=== PATIENT | male | born 1955 | race Two or more races ===

== ENCOUNTER 2017-04-20 15:45 | Emergency (ER) | payer MEDICAID ==
[2017-04-20 15:49] VITALS: BP 150/83; PULSE 60; RESP 16; TEMP 98.1; O2SAT 95
--- NOTE | 2017-04-20 16:36 | EDPHY ---
H & P Time Seen by Provider: 04/20/17 16:30 HPI/ROS: CHIEF COMPLAINT: Right thumb pain x6 weeks HISTORY OF PRESENT ILLNESS: 61-year-old male states that 6 weeks ago he sustained a mechanical fall and fell onto his right hand sustaining hyperabduction injury to his right thumb. He has been wearing a modified right Velcro thumb spica splint but notes continued pain with range of motion. No weakness. No discoloration. Intact skin. No wrist pain. No other hand pain. No elbow or head injury. PRIMARY CARE PROVIDER: the [facility] REVIEW OF SYSTEMS: A ten point review of systems was performed and is negative with the exception of the items mentioned in the HPI PHYSICAL EXAM (Prior to examination, patient consented to physical exam, hands were washed and my usual and customary physical exam procedures followed) 1) GENERAL: Well-developed, well-nourished, alert and oriented. Appears to be in no acute distress. 2) HEAD: Normocephalic 3) HEENT: Pupils equal, round, reactive to light bilaterally. 4) LUNGS: Breathing comfortably. 5) MUSCULOSKELETAL: Tender to palpation right thumb proximal phalanx. No visible or palpable abnormality. No crepitus. Soft compartments. Normal coloration. 6) SKIN: intact skin. No signs of infection. Negative kanavel. 7) VASCULAR: pulses and cap refill present are brisk 8) NEUROLOGIC: Radial, ulnar, median nerve function intact with no deficits appreciated on exam DIFFERENTIAL DIAGNOSIS: in no particular order including but not limited to fracture, sprain, ulnar collateral ligament injury, septic arthritis, compartment syndrome Procedure: Splint A Velcro thumb spica splint was applied by ER mechanical sound technician. After application of the splint I returned and re-examined the patient. The splint was adequately immobilizing the joint and distal to the splint the patient's circulation and sensation were intact. Patient shows no signs of compartment syndrome. Was given orthopedic precautions. Smoking Status: Former smoker Constitutional: Initial Vital Signs Temperature (C) 36.7 C 04/20/17 15:47 Heart Rate 60 04/20/17 15:47 Respiratory Rate 16 04/20/17 15:47 Blood Pressure 150/83 H 04/20/17 15:47 O2 Sat (%) 95 04/20/17 15:47 Allergies/Adverse Reactions: No Known Allergies Allergy (Verified 04/20/17 15:46) Home Medications: Medication Instructions Recorded NK [No Known Home Meds] 04/20/17 MDM/Departure - MDM Imaging Results: Imaging Impressions Hand X-Ray 04/20/17 15:50 Impression: Normal first digit. Images reviewed by myself ED Course/Re-evaluation: Doubt septic arthritis. We discussed possibility of occult fracture, discussed possible occult scaphoid fracture, discussed possible ulnar collateral ligament injury . Doubt compartment syndrome. Doubt septic arthritis. Doubt infectious etiology. At this time I do not think that emergent hand consultation or MRI is indicated. He has been placed in a Velcro thumb spica and given Hand surgery on-call follow-up information stressed the importance of follow-up. He feels comfortable with this plan.Care of patient under supervision of secondary supervising physician Dr Stone . - Depart Disposition: Home, Routine, Self-Care Clinical Impression: Gamekeeper's thumb of right hand Qualifiers: Encounter type: initial encounter Qualified Code(s): S53.31XA - Traumatic rupture of right ulnar collateral ligament, initial encounter Condition: Good Instructions: Skier's Thumb (ED) Additional Instructions: Return to the ER immediately if you experience discoloration, have worsening pain, numbness, tingling, or any other symptoms that concern you. If you received x-rays in the emergency department today, be advised, that ligamentous , tendon, muscular, and other non-bony injury cannot be fully ruled out. Try to keep your affected extremity elevated above the level of your chest, and keep cold packs on the affected area, for the next 48 hours. Referrals: Corey Scruggs MD [Medical Doctor] - 2-3 days, call for appt.
== END 2017-04-20 16:45 | disposition home or self-care (01) ==
DX: S53.31XA Traumatic rupture of right ulnar collateral ligament, initial encounter (principal); Z87.891 Personal history of nicotine dependence; W18.39XA Other fall on same level, initial encounter
CPT/HCPCS: L3807

== ENCOUNTER 2018-03-07 11:55 | Emergency (ER) | payer MEDICAID ==
--- NOTE | 2018-03-07 13:10 | EDPHY ---
H & P Stated Complaint: suprapubic and l lower abd pain Time Seen by Provider: 03/07/18 12:50 HPI/ROS: CHIEF COMPLAINT: Left lower quadrant pain HISTORY OF PRESENT ILLNESS: 62-year-old male with history of diverticulitis presents with left lower quadrant pain. Onset of left lower quadrant pain 3 days ago. The pain is mild and increases with palpation. Associated with pain after urination. Low-grade fever last night. No vomiting or diarrhea. Similar to prior episodes of diverticulitis. REVIEW OF SYSTEMS: complete 10 point ROS reviewed and is negative except for the noted elements in the HPI - Personal History Current Tetanus Diphtheria and Acellular Pertussis (TDAP): Yes Tetanus Vaccine Date: 2013 - Medical/Surgical History Hx Asthma: No Hx Chronic Respiratory Disease: No Hx Diabetes: No Hx Cardiac Disease: No Hx Renal Disease: No Hx Cirrhosis: No Hx Alcoholism: No Hx HIV/AIDS: No Hx Splenectomy or Spleen Trauma: No Other PMH: arthritis - Social History Smoking Status: Former smoker - Physical Exam Exam: General Appearance: Alert, pleasant Eyes: Pupils equal and round, no conjunctival pallor or injection ENT, Mouth: Mucous membranes moist Neck: Normal inspection Respiratory: Lungs are clear to auscultation Cardiovascular: Regular rate and rhythm Gastrointestinal: Abdomen is soft, left lower quadrant tenderness Neurological: A&O, nonfocal, normal gait Skin: Warm and dry, no rash Extremities: Nontender, no pedal edema Psychiatric: Mood and affect normal Constitutional: Initial Vital Signs Temperature (C) 36.6 C 03/07/18 12:02 Heart Rate 75 03/07/18 12:02 Respiratory Rate 18 03/07/18 12:02 Blood Pressure 161/97 H 03/07/18 12:02 O2 Sat (%) 97 03/07/18 12:02 O2 Delivery Mode Room Air Allergies/Adverse Reactions: No Known Allergies Allergy (Verified 03/07/18 12:02) Home Medications: Medication Instructions Recorded Ciprofloxacin [Cipro] 500 mg PO BID #20 tab 03/07/18 metroNIDAZOLE [Flagyl 500 mg (*)] 500 mg PO BID #20 tab 03/07/18 Medical Decision Making ED Course/Re-evaluation: This patient presents with left lower quadrant tenderness and low-grade fever last evening. Urinalysis reveals hematuria, without pyuria. Clinical presentation consistent with acute diverticulitis. Doubt renal colic, given the mild nature of the pain. Discussed with patient, will treat with Cipro and Flagyl. If symptoms worsen, will return to the emergency department for re- evaluation, consideration of CT scan. Differential Diagnosis: Differential diagnosis includes though it is not limited to appendicitis, cholecystitis, diverticulitis, pyelonephritis, bowel perforation, small bowel obstruction. - Data Points Laboratory Results: 03/07/18 12:35 Urine Color YELLOW Urine Appearance CLEAR Urine pH 5.0 (5.0-7.5) Ur Specific [place] 1.018 (1.002-1.030) Urine Protein NEGATIVE (NEGATIVE) Urine Ketones TRACE H (NEGATIVE) Urine Blood 2+ H (NEGATIVE) Urine Nitrate NEGATIVE (NEGATIVE) Urine Bilirubin NEGATIVE (NEGATIVE) Urine Urobilinogen NEGATIVE EU EU (0.2-1.0) Ur Leukocyte Esterase NEGATIVE (NEGATIVE) Urine RBC 1-3 /hpf /hpf (0-3) Urine WBC 1-3 /hpf /hpf (0-3) Ur Epithelial Cells NONE SEEN /lpf /lpf (NONE-1+) Urine Mucus TRACE /lpf /lpf (NONE-1+) Urine Glucose NEGATIVE (NEGATIVE) Departure - Departure Disposition: Home, Routine, Self-Care Clinical Impression: Diverticulitis Condition: Good Instructions: Diverticulitis (ED), Diverticulitis Diet (ED) Additional Instructions: Return for worsening symptoms or any concerns. Tylenol or ibuprofen for pain. Referrals: Anila Harris, PAC [Primary Care Provider] - As per Instructions Prescriptions: Ciprofloxacin [Cipro] 500 mg PO BID #20 tab metroNIDAZOLE [Flagyl 500 mg (*)] 500 mg PO BID #20 tab
[2018-03-07 13:23] VITALS: BP 157/82
== END 2018-03-07 13:23 | disposition home or self-care (01) ==
DX: K57.92 Diverticulitis of intestine, part unspecified, without perforation or abscess without bleeding (principal); Z87.891 Personal history of nicotine dependence

== ENCOUNTER 2018-05-19 13:21 | Emergency (ER) | payer MEDICAID ==
[2018-05-19] MEDS ORDERED: metroNIDAZOLE 500 MG TAB PO ONE (15:37)
[2018-05-19] MEDS ORDERED: CIPROFLOXACIN 500 MG TAB PO ONE (15:37)
--- NOTE | 2018-05-19 15:45 | EDPHY ---
H & P Stated Complaint: l abd pain with hx diverticulitis Time Seen by Provider: 05/19/18 15:34 HPI/ROS: CHIEF COMPLAINT: Left lower quadrant pain HISTORY OF PRESENT ILLNESS: Patient is a 62-year-old man with history of diverticulitis who comes to the emergency department complaining of left lower quadrant pain that he feels similar to previous episodes of diverticulitis. No fever. No vomiting. No constipation or diarrhea. No bloody stool. He states that this is much earlier than he has been treated in the past. He did not wanted to get worse. He has been treated successfully before with ciprofloxacin and Flagyl. No abdominal surgeries. Severity: Moderate Modifying factors: None REVIEW OF SYSTEMS: Constitutional: denies: chills, fever, recent illness, recent injury EENTM: denies: blurred vision, double vision, nose congestion Respiratory: denies: cough, shortness of breath Cardiac: denies: chest pain, irregular heart rate, lightheadedness, palpitations Gastrointestinal/Abdominal: See HPI Genitourinary: denies: dysuria, frequency, hematuria, pain Musculoskeletal: denies: joint pain, muscle pain Skin: denies: lesions, rash, jaundice, bruising Neurological: denies: headache, numbness, paresthesia, tingling, dizziness, weakness Hematologic/Lymphatic: denies: blood clots, easy bleeding, easy bruising Immunologic/allergic: denies: HIV/AIDS, transplant 10 systems reviewed and negative except as noted EXAM: GENERAL: Well-appearing, well-nourished and in no acute distress. HEAD: Atraumatic, normocephalic. EYES: Pupils equal round and reactive to light, extraocular movements intact, sclera anicteric, conjunctiva are normal. ENT: TMs normal, nares patent, oropharynx clear without exudates. Moist mucous membranes. NECK: Normal range of motion, supple without lymphadenopathy or JVD. LUNGS: Breath sounds clear to auscultation bilaterally and equal. No wheezes rales or rhonchi. HEART: Regular rate and rhythm without murmurs, rubs or gallops. ABDOMEN: Soft, nontender, normoactive bowel sounds. No guarding, no rebound. No masses appreciated. BACK: No CVA tenderness, no spinal tenderness, step-offs or deformities EXTREMITIES: Normal range of motion, no pitting or edema. No clubbing or cyanosis. NEUROLOGICAL: Cranial nerves II through XII grossly intact. Normal speech, normal gait. 5/5 strength, normal movement in all extremities, normal sensation , normal reflexes PSYCH: Normal mood, normal affect. SKIN: Warm, dry, normal turgor, no visible rashes or lesions. Source: Patient Exam Limitations: No limitations - Personal History Current Tetanus Diphtheria and Acellular Pertussis (TDAP): Yes Tetanus Vaccine Date: 2013 - Medical/Surgical History Hx Asthma: No Hx Chronic Respiratory Disease: No Hx Diabetes: No Hx Cardiac Disease: No Hx Renal Disease: No Hx Cirrhosis: No Hx Alcoholism: No Hx HIV/AIDS: No Hx Splenectomy or Spleen Trauma: No Other PMH: arthritis/diverticulitis - Family History Significant Family History: No pertinent family hx - Social History Smoking Status: Former smoker Alcohol Use: Sober Drug Use: None Constitutional: Initial Vital Signs Temperature (C) 36.5 C 05/19/18 13:24 Heart Rate 58 L 05/19/18 13:24 Respiratory Rate 18 05/19/18 13:24 Blood Pressure 156/87 H 05/19/18 13:24 O2 Sat (%) 95 05/19/18 13:24 O2 Delivery Mode Room Air Allergies/Adverse Reactions: No Known Allergies Allergy (Verified 05/22/18 12:24) Home Medications: Medication Instructions Recorded Ciprofloxacin [Cipro] 500 mg PO BID #14 tab 05/19/18 Naproxen 05/19/18 metroNIDAZOLE [Flagyl] 500 mg PO BID #20 tab 05/19/18 Medical Decision Making ED Course/Re-evaluation: The patient has a benign abdominal exam. I offered lab work and CT but he and his fiancee do not think it is necessary. I agree. His symptoms are similar to previous. His vital signs are stable and is abdomen exam is benign. I will start him on ciprofloxacin and Flagyl. I will have him follow up in 2 days for reassessment. He understands and agrees with this plan. We discussed indications for returning. Differential Diagnosis: Partial list of the Differential diagnosis considered include but were not limited to; diverticulitis, constipation and although unlikely based on the history and physical exam, I also considered perforation, ischemia, volvulus. I discussed these differential diagnoses and the plan with the patient as well as the usual and expected course. The patient understands that the diagnosis is provisional and that in medicine we are not always correct and that further workup is often warranted. Usual and customary warnings were given. All of the patient's questions were answered. The patient was instructed to return to the emergency department should the symptoms at all worsen or return, otherwise to followup with the physician as we discussed. - Data Points Medications Given: Discontinued Medications Ciprofloxacin (Cipro) 500 mg PO EDNOW ONE PRN Reason: Protocol Stop: 05/19/18 15:38 Last Admin: 05/19/18 15:42 Dose: 500 mg Metronidazole (Flagyl) 500 mg PO EDNOW ONE PRN Reason: Protocol Stop: 05/19/18 15:38 Last Admin: 05/19/18 15:42 Dose: 500 mg Departure - Departure Disposition: Home, Routine, Self-Care Clinical Impression: Diverticulitis Qualifiers: Diverticulitis site: large intestine Diverticulitis bleeding: without bleeding Diverticulitis complication: unspecified complication status Qualified Code(s): K57.32 - Diverticulitis of large intestine without perforation or abscess without bleeding Condition: Fair Instructions: Ciprofloxacin (By mouth), Metronidazole (By mouth), Diverticulitis (ED) Referrals: nAila Harris, PAC [Primary Care Provider] - As per Instructions Prescriptions: Ciprofloxacin [Cipro] 500 mg PO BID #14 tab metroNIDAZOLE [Flagyl] 500 mg PO BID #20 tab
[2018-05-19 16:02] VITALS: BP 122/76
== END 2018-05-19 16:02 | disposition home or self-care (01) ==
DX: K57.32 Diverticulitis of large intestine without perforation or abscess without bleeding (principal)

== ENCOUNTER 2018-05-22 12:19 | Emergency (ER) | payer MEDICAID ==
[2018-05-22 12:49] LABS: PLATELET COUNT 301 10^3/uL (150-400)
[2018-05-22] MEDS ORDERED: NS 1,000 ML IV ONE (13:22)
--- NOTE | 2018-05-22 13:22 | EDPHY ---
H & P Time Seen by Provider: 05/22/18 12:51 HPI/ROS: Chief complaint. Abdominal pain HPI. Patient is a 62-year-old male with history of diverticulitis was seen in our emergency department on May 19. The symptoms felt like previous diverticulitis so patient declined a CT. He was started on Cipro and Flagyl. Today as continued pain in the left lower quadrant but also it is more generalized now. He has had some loose stools. This morning he had nausea and some dizziness. Maybe he had a fever. Denies chest pain or shortness of breath. He does have urinary frequency. ROS 10 systems were reviewed and negative with the exception of the elements mentioned in the history of present illness Past Medical/Surgical History: Arthritis, diverticulitis Social History: , nonsmoker, no alcohol Smoking Status: Former smoker Physical Exam: General Appearance: Alert well-developed male mild distress vital signs are stable. He is afebrile Eyes: Pupils equal and round no pallor or injection. ENT, Mouth: Mucous membranes are moist. Respiratory: There are no retractions, lungs are clear to auscultation. Cardiovascular: Regular rate and rhythm. Gastrointestinal: Abdomen is soft with tenderness especially in the left lower and mid quadrant. But he does have bilateral upper abdominal tenderness. Normal bowel sounds. No masses Neurological: Awake and alert, sensory and motor exams grossly normal. Skin: Warm and dry, no rashes. Musculoskeletal: Neck is supple nontender. Extremities symmetrical, full range of motion. Psychiatric: Patient is oriented X 3, there is no agitation. Constitutional: Initial Vital Signs Temperature (C) 36.3 C 05/22/18 12:21 Heart Rate 67 05/22/18 12:21 Respiratory Rate 18 05/22/18 12:21 Blood Pressure 154/106 H 05/22/18 12:21 O2 Sat (%) 95 05/22/18 12:21 O2 Delivery Mode Room Air Allergies/Adverse Reactions: No Known Allergies Allergy (Verified 05/22/18 12:24) Home Medications: Medication Instructions Recorded Ciprofloxacin [Cipro] 500 mg PO BID #14 tab 05/19/18 Naproxen 05/19/18 metroNIDAZOLE [Flagyl] 500 mg PO BID #20 tab 05/19/18 Medical Decision Making - Diagnostics Imaging Results: Imaging Impressions Abdomen CT 05/22/18 13:22 Impression: 1. Perforated diverticulitis of the distal descending/proximal sigmoid colon without abscess. 2. Small hiatal hernia. 3. Additional findings as above. Findings discussed with Dr. Gonzalo Cardenas on 05/22/2018 at 14:03. CT abdomen and pelvis with IV contrast shows perforated diverticulitis in the sigmoid colon. There is mesenteric inflammation. Small perforation but no abscess Procedures: IV normal saline ED Course/Re-evaluation: Re-evaluation at 2:15 p.m. Patient is stable. Patient and I discussed laboratory and imaging studies. We discussed treatment plan including I offered the patient admission because of my concern of potentially failing outpatient management. He would like to go home. Risks and benefits of this are discussed. He agrees to return for worsening symptoms and already has a scheduled follow-up appointment with cap sizer Dr. Wyatt Differential Diagnosis: The patient may be failing outpatient treatment however no CT was done the other day so the mesenteric inflammation and perforation may have been present. There is no abscess. He does have diverticulitis and is taking Flagyl and Cipro. - Data Points Laboratory Results: Laboratory Results 05/22/18 12:34 05/22/18 12:34 05/22/18 05/22/18 05/22/18 12:34 12:34 12:34 WBC 9.20 10^3/uL 10^3/uL (3.80-9.50) RBC 4.51 10^6/uL 10^6/uL (4.40-6.38) Hgb 15.0 g/dL g/dL (13.7-17.5) Hct 43.9 % % (40.0-51.0) MCV 97.3 fL fL (81.5-99.8) MCH 33.3 pg pg (27.9-34.1) MCHC 34.2 g/dL g/dL (32.4-36.7) RDW 12.7 % % (11.5-15.2) Plt Count 301 10^3/uL 10^3/uL (150-400) MPV 9.7 fL fL (8.7-11.7) Neut % (Auto) 70.9 % % (39.3-74.2) Lymph % (Auto) 21.6 % % (15.0-45.0) [place] % (Auto) 6.3 % % (4.5-13.0) Eos % (Auto) 0.9 % % (0.6-7.6) Baso % (Auto) 0.2 % L % (0.3-1.7) Nucleat RBC Rel Count 0.0 % % (0.0-0.2) Absolute Neuts (auto) 6.52 10^3/uL H 10^3/uL (1.70-6.50) Absolute Lymphs (auto) 1.99 10^3/uL 10^3/uL (1.00-3.00) Absolute Monos (auto) 0.58 10^3/uL 10^3/uL (0.30-0.80) Absolute Eos (auto) 0.08 10^3/uL 10^3/uL (0.03-0.40) Absolute Basos (auto) 0.02 10^3/uL 10^3/uL (0.02-0.10) Absolute Nucleated RBC 0.00 10^3/uL 10^3/uL (0-0.01) Immature Gran % 0.1 % % (0.0-1.1) Immature Gran # 0.01 10^3/uL 10^3/uL (0.00-0.10) Sodium 140 mEq/L mEq/L (135-145) Potassium 4.2 mEq/L mEq/L (3.3-5.0) Chloride 107 mEq/L mEq/L (97-110) Carbon Dioxide 24 mEq/l mEq/l (22-31) Anion Gap 9 mEq/L mEq/L (6-14) BUN 14 mg/dL mg/dL (7-23) Creatinine 0.8 mg/dL mg/dL (0.7-1.3) Estimated GFR > 60 Glucose 126 mg/dL H mg/dL (70-100) Calcium 9.1 mg/dL mg/dL (8.5-10.4) Urine Color YELLOW Urine Appearance CLEAR Urine pH 6.0 (5.0-7.5) Ur Specific [place] 1.011 (1.002-1.030) Urine Protein NEGATIVE (NEGATIVE) Urine Ketones NEGATIVE (NEGATIVE) Urine Blood 1+ H (NEGATIVE) Urine Nitrate NEGATIVE (NEGATIVE) Urine Bilirubin NEGATIVE (NEGATIVE) Urine Urobilinogen NEGATIVE EU EU (0.2-1.0) Ur Leukocyte Esterase TRACE H (NEGATIVE) Urine RBC 1-3 /hpf /hpf (0-3) Urine WBC 1-3 /hpf /hpf (0-3) Ur Epithelial Cells NONE SEEN /lpf /lpf (NONE-1+) Urine Mucus TRACE /lpf /lpf (NONE-1+) Urine Glucose NEGATIVE (NEGATIVE) Medications Given: Discontinued Medications Sodium Chloride (Ns) 1,000 mls @ 0 mls/hr IV EDNOW ONE; Wide Open PRN Reason: Protocol Stop: 05/22/18 13:23 Last Admin: 05/22/18 13:49 Dose: 1,000 mls Departure - Departure Disposition: Home, Routine, Self-Care Clinical Impression: Diverticulitis large intestine Qualifiers: Diverticulitis bleeding: without bleeding Diverticulitis complication: with perforation and without abscess Qualified Code(s): K57.20 - Diverticulitis of large intestine with perforation and abscess without bleeding Condition: Good Instructions: Diverticulitis Diet (ED), Diverticulitis (ED) Additional Instructions: Continue Cipro and Flagyl. Return for worsening pain or fever. Recheck in 2 days if not improved Keep her follow-up appointment with Dr. Wyatt Referrals: Anila Harris, IVAN [Primary Care Provider] - As per Instructions Garcia Wyatt [place] [place] - As per Instructions
[2018-05-22] MEDS ORDERED: IOPAMIDOL (ISOVUE-300) 100 ML BTL ONE (13:26)
[2018-05-22 14:53] VITALS: BP 155/91
== END 2018-05-22 14:53 | disposition home or self-care (01) ==
DX: K57.20 Diverticulitis of large intestine with perforation and abscess without bleeding (principal); E86.9 Volume depletion, unspecified; Z87.891 Personal history of nicotine dependence
CPT/HCPCS: Q9967

== ENCOUNTER 2018-07-06 07:30 | Inpatient (IN) | payer MEDICAID ==
[2018-08-06] MEDS ORDERED: LR 1,000 ML IV ONE (06:47)
[2018-08-06] MEDS ORDERED: cefOXitin SODIUM 2 GM in NS 100 ML IV ONE (07:03)
[2018-08-06] MEDS ORDERED: MIDAZOLAM 2 MG/2 ML VIAL IVP ONE (07:16)
--- NOTE | 2018-08-06 07:18 | PDANEPAE ---
ANE History of Present Illness diverticulitis s/f sigmoid colectomy ANE Past Medical History - Cardiovascular History Hx Hypertension: No Hx Arrhythmias: No Hx Chest Pain: No Hx Coronary Artery / Peripheral Vascular Disease: No Hx CHF / Valvular Disease: No Hx Palpitations: No - Pulmonary History Hx COPD: No Hx Asthma/Reactive Airway Disease: No Hx Recent Upper Respiratory Infection: No Hx Oxygen in Use at Home: No Hx Sleep Apnea: No Sleep Apnea Screening Result - Last Documented: Positive Pulmonary History Comment: ramon triggers - Neurologic History Hx Cerebrovascular Accident: No Hx Seizures: No Hx Dementia: No - Endocrine History Hx Diabetes: No - Renal History Hx Renal Disorders: No - Liver History Hx Hepatic Disorders: No - Neurological & Psychiatric Hx Hx Neurological and Psychiatric Disorders: No - Cancer History Hx Cancer: No - Congenital Disorder History Hx Congenital Disorders: No - GI History Hx Gastrointestinal Disorders: Yes Gastrointestinal History Comment: hx of colonoscopies. diverticulitis - Other Health History Other Health History: wears glasses for reading. permanent upper partial plate. right knee has recieved cortisone shots - Chronic Pain History Chronic Pain: Yes (right knee) - Surgical History Prior Surgeries: colonoscopy. dental surgery. bilateral bunionectomy ANE Review of Systems Review of Systems: - Exercise capacity METS (RN): 5 METS ANE Patient History - Allergies Allergies/Adverse Reactions: No Known Allergies Allergy (Verified 07/23/18 11:50) - Home Medications Home medications: home medication list seen and reviewed Home Medications: NK [No Known Home Meds] 07/16/18 [Last Taken Unknown] - NPO status NPO Status: no food or drink >8 hours - Anes Hx Anes Hx: no prior problems - Smoking Hx Smoking Status: Former smoker - Alcohol Use Alcohol Use: Occasionally - Family Anes Hx Family Anes Hx: none Family Hx Anesthesia Complications: none ANE Labs/Vital Signs - Labs - CBC WBC: reviewed and okay - Vital Signs Height: 172.72 cm Weight: 80.739 kg ANE Physical Exam - Airway Neck exam: FROM Mallampati Score: Class 2 Mouth exam: normal dental/mouth exam - Pulmonary Pulmonary: no respiratory distress - Cardiovascular Cardiovascular: regular rate and rhythym - ASA Status ASA Status: II ANE Anesthesia Plan Anesthesia Plan: general endotracheal anesthesia Regional Anesthesia: TAP block
[2018-08-06] MEDS ORDERED: INDOCYANINE GREEN 25 MG VIAL ONE (07:28)
[2018-08-06] MEDS ORDERED: BUPIVACAINE 0.5% 30 ML SDV ONE (07:28)
[2018-08-06] MEDS ORDERED: fentaNYL 100 MCG/2 ML INJ ONE ×3 (07:32→11:43)
[2018-08-06] MEDS ORDERED: PROPOFOL/EMULSION 500 MG/50 ML BOTTLE IV ONE ×2 (07:33→09:12)
[2018-08-06] MEDS ORDERED: ONDANSETRON 4 MG/2 ML VIAL ONE (07:35)
[2018-08-06] MEDS ORDERED: ROCURONIUM 100 MG/10 ML VIAL ONE (07:35)
[2018-08-06] MEDS ORDERED: DEXAMETHASONE 4 MG/ML VIAL ONE (07:35)
[2018-08-06] MEDS ORDERED: LIDOCAINE 2% 100 MG/5 ML SYR ONE (07:36)
[2018-08-06] MEDS ORDERED: ROCURONIUM 50 MG/5 ML VIAL ONE (10:04)
[2018-08-06] MEDS ORDERED: ROPIVACAINE HCL 150 MG/30 ML INJ ONE ×2 (10:20)
[2018-08-06] MEDS ORDERED: EPINEPHrine 1 MG/ML INJ ONE (10:20)
[2018-08-06] MEDS ORDERED: SUGAMMADEX SODIUM 200 MG/2 ML VIAL IVP ONE (10:37)
--- NOTE | 2018-08-06 10:57 | PDHPUP ---
History & Physical Update H&P update statement: This history and physical update is based on an assessment of the patient which was completed after admission or registration (within 24 hours), but prior to the surgery/procedure. H&P update: H&P reviewed & patient examined, no change in patient's condition since H&P completed
--- NOTE | 2018-08-06 10:58 | POSTOPPROG ---
Post Op Note Date of Operation: 08/06/18 Surgeon: Des Ventura Molder Shoulder Pad: Kaur Castanon Anesthesiologist: Dr. Moreno Anesthesia: GET(General Endotracheal) Pre-op Diagnosis: Diverticulitis Post-op Diagnosis: same Procedure: Robotic sigmoidectomy/LAR Inf/Abcess present in the surg proc area at time of surgery?: No EBL: Minimal
[2018-08-06] MEDS ORDERED: ONDANSETRON 4 MG/2 ML VIAL IVP PRN ×2 (10:59→11:03)
[2018-08-06] MEDS ORDERED: DEXAMETHASONE 4 MG/ML VIAL IVP PRN (11:03)
[2018-08-06] MEDS ORDERED: PHENYLEPHRINE HCL 100 MCG/ML SYR IVP PRN (11:03)
[2018-08-06] MEDS ORDERED: NALOXONE HCL 0.4 MG/ML INJ IVP PRN (11:03)
[2018-08-06] MEDS ORDERED: oxyCODONE IR 5 MG TAB PO PRN (11:03)
[2018-08-06] MEDS ORDERED: ALBUTEROL 3 ML DEYVIAL IH PRN (11:03)
[2018-08-06] MEDS ORDERED: LR 500 ML IV PRN (11:03)
[2018-08-06] MEDS ORDERED: ACETAMINOPHEN 500 MG TAB PO PRN (11:03)
[2018-08-06] MEDS ORDERED: METOCLOPRAMIDE 10 MG/2 ML VIAL IVP PRN (11:03)
[2018-08-06] MEDS ORDERED: MEPERIDINE 25 MG/0.5 ML AMP IVP PRN (11:03)
[2018-08-06] MEDS ORDERED: PROMETHAZINE HCL 25 MG/ML INJ IVP PRN (11:03)
[2018-08-06] MEDS ORDERED: HYDROmorphONE/DILAUDID 2 MG/ML INJ IVP PRN (11:03)
[2018-08-06] MEDS ORDERED: LABETALOL HCL 5 MG/ML 20 ML MDV IVP PRN (11:03)
--- NOTE | 2018-08-06 11:17 | PDMN ---
Medical Necessity Medical necessity: 63 yo s/p CPT 68085, [facility] [place] S235 Bowel Surgery: Colectomy, Partial, with or without Ostomy, by Laparoscopy, IP only
[2018-08-06] MEDS: fentaNYL 100 MCG/2 ML INJ IVP PRN ×3 (11:18→11:43)
--- NOTE | 2018-08-06 11:55 | GOP ---
[f rep st] OPERATIVE REPORT DATE OF OPERATION: 08/06/2018 SURGEON: Satish Ventura MD HOUSING DIRECTOR: Dr. Andrade and Yudy Dietrich MS3. ANESTHESIA: General endotracheal anesthesia. ANESTHESIOLOGIST: Dr. Moreno. PREOPERATIVE DIAGNOSIS: Diverticulitis. POSTOPERATIVE DIAGNOSIS: Diverticulitis. PROCEDURE PERFORMED: Robotic low anterior resection. FINDINGS: The patient had mild diverticulitis in the mid sigmoid. No mass lesions were identified. No other lesions were noted. ESTIMATED BLOOD LOSS: 20 cc. INDICATIONS: A 63 -year-old male with a history of recurrent diverticulitis. Risks and benefits of procedure discussed with patient and family, their questions were answered. They wish to proceed. DESCRIPTION OF PROCEDURE: The patient was in the supine position. After the induction of general endotracheal anesthesia, the patient was moved to the modified lithotomy position and prepped and draped sterilely. 0.5% marcaine was injected in the periumbilical area for local anesthesia and an 8mm incision was made. The abdominal wall was elevated and a Veress needle inserted. After noting proper pressures, the abdomen was insufflated with carbon dioxide. An 8mm trocar was passed, and the camera followed. There was no apparent damage from trocar placement. 4 more ports were placed, two 8mm, one 15mm, and one 5mm assist port. These were placed under direct vision after injecting local. [id number]-jb-meigslt dissection was performed after retracting the sigmoid laterally. The inferior mesenteric vessels were carefully dissected and then transected with a vascular load of the stapler. The ureter on the left was then identified and preserved throughout the remainder of the surgery. The proximal and distal margins of resection were identified and the mesentery taken down with the vessel sealer. The white line of Toldt was mobilized using blunt dissection and cautery. Firefly technology was used to ensure adequate blood flow. Intracorporeal anastomosis was performed. After transecting distally with the stapler, a colotomy was made with scissors. A 2nd colotomy was made proximal to this, a much smaller opening with the scissors. A 29 EEA anvil that had been selected was passed in the abdomen. This was threaded through the larger colotomy and the stem fed through the smaller colotomy. Once this was accomplished, the stapler was used to transect proximal to the large colotomy. The EEA anastomosis was then performed after ensuring no twisting or tension. The leak test was performed after irrigating with saline and occluding proximally. No leak was identified. The abdomen was then inspected. No other lesions were identified. Good hemostasis was noted. Extraction was performed by enlarging the right lower quadrant incision sharply. The muscle was split bluntly and a wound protector was used. Specimen was extracted and the abdomen was thoroughly irrigated and aspirated. Muscles closed in layers using 0 PDS in a running fashion. Skin was closed at all sites using 4-0 Monocryl in a subcuticular stitch. Wound was sterilely dressed, and the patient was returned to the supine position. Prior to extubation, a TAP block was performed by the anesthesiologist. The patient was extubated and taken to the PACU in stable condition. COMPLICATIONS: None. DRAINS: None. /[id number]/MODL MTDD
[2018-08-06] MEDS: HYDROmorphONE/DILAUDID 1 MG/ML INJ IVP PRN ×4 (12:51→20:08)
--- NOTE | 2018-08-06 13:01 | POSTANESTH ---
Post Anesthetic Evaluation Cardiovascular Status: Normal, Stable Respiratory Status: Normal, Stable Level of Consciousness/Mental Status: Can Participate in Eval Pain Control: Adequate, Prn Tx Ordered Nausea/Vomiting Control: Adequate, Prn Tx Ordered Complications Possibly Related to Anesthesia: None Noted
[2018-08-06] MEDS: cefOXitin SODIUM 1 GM in NS 50 ML IV SCH (20:13)
[2018-08-06] MEDS: KETOROLAC 15 MG/1 ML SDV IVP SCH (21:57)
[2018-08-07] MEDS: HYDROmorphONE/DILAUDID 1 MG/ML INJ IVP PRN ×9 (00:27→23:37)
[2018-08-07] MEDS: cefOXitin SODIUM 1 GM in NS 50 ML IV SCH ×2 (02:04→07:31)
[2018-08-07] MEDS: KETOROLAC 15 MG/1 ML SDV IVP SCH ×3 (05:14→21:33)
--- NOTE | 2018-08-07 12:33 | SOAPPROG ---
SOAP Progress Note Assessment/Plan: Assessment: s/p robotic sigmoid, doing well. Advance diet, ambulate. If isrrael will transition to po pain meds. Plan: 08/07/18 12:30 Subjective: Patient feels better, cramping improved. Denies N/V. Isrrael po, + BM. Objective: Vital Signs Temp Pulse Resp BP Pulse Ox 36.9 C 50 L 16 118/74 98 08/07/18 07:55 08/07/18 07:55 08/07/18 07:55 08/07/18 07:55 08/07/18 07:55 Laboratory Results 08/07/18 04:10 08/07/18 04:10 08/06/18 08/07/18 08/08/18 05:59 05:59 05:59 Intake Total 2350 Output Total 2715 Balance -365 Alert, NAD RRR Abd soft, inc TTP Inc C/D/I ICD10 Worksheet Patient Problems: Problems Problem Status Onset Diverticulitis Acute - ICD10 Problem Qualifiers (1) Diverticulitis
--- NOTE | 2018-08-07 14:39 | ASMTCMCOM ---
CM Note CM Note Notes: Patient chart reviewed for discharge planning purposes. Patient is s/p colectomy. No therapies ordered at this point. Likely to discharge independently with family support. CM to follow for needs Plan: TBD Date Signed: 08/07/2018 02:38 PM Electronically Signed By:Monserrat Weems RN
[2018-08-08] MEDS: HYDROmorphONE/DILAUDID 1 MG/ML INJ IVP PRN ×2 (04:08→08:48)
[2018-08-08] MEDS: KETOROLAC 15 MG/1 ML SDV IVP SCH ×3 (05:08→22:16)
--- NOTE | 2018-08-08 10:36 | ASMTCMCOM ---
CM Note CM Note Notes: Pt has been up and walking laps around the unit this morning. He reports he is feeling much better and reports no concerns about being discharged independently once medically cleared. CM available if needs arise. Plan: independent Date Signed: 08/08/2018 10:36 AM Electronically Signed By:THERESA Haddad
--- NOTE | 2018-08-08 11:17 | SOAPPROG ---
SOAP Progress Note Assessment/Plan: Assessment: s/p robotic sigmoid, doing well. Trial po pain meds. Plan: 08/07/18 12:30 08/08/18 11:16 Subjective: Patient feels better, pain improved. Melissa po, no N/V. Ambulating. Objective: Vital Signs Temp Pulse Resp BP Pulse Ox 36.6 C 61 16 130/85 H 94 08/08/18 11:13 08/08/18 11:13 08/08/18 11:13 08/08/18 11:13 08/08/18 11:13 Laboratory Results 08/08/18 04:26 08/08/18 04:26 08/07/18 08/08/18 08/09/18 05:59 05:59 05:59 Intake Total 2350 1999 Output Total 2715 1875 260 Balance -365 125 -260 Alert, NAD RRR Abd soft, NTTP Inc with min ecchymosis, no erythema. ICD10 Worksheet Patient Problems: Problems Problem Status Onset Diverticulitis Acute - ICD10 Problem Qualifiers (1) Diverticulitis
[2018-08-08] MEDS: OXYCODONE/APAP 5/325 TAB PO PRN ×2 (11:44→18:35)
[2018-08-09] MEDS: OXYCODONE/APAP 5/325 TAB PO PRN ×2 (01:14→08:04)
[2018-08-09] MEDS: KETOROLAC 15 MG/1 ML SDV IVP SCH (06:34)
[2018-08-09 07:37] VITALS: BP 165/92
--- NOTE | 2018-08-09 09:23 | SOAPPROG ---
[facility] Progress Note Assessment/Plan: Assessment: s/p robotic sigmoid, doing well. plan d/c. D/w patient and family at length, questions answered. Plan: 08/07/18 12:30 08/08/18 11:16 08/09/18 09:22 Subjective: Patient without complaints, minimal pain, isrrael po, + flatus. Objective: Vital Signs Temp Pulse Resp BP Pulse Ox 36.5 C 45 L 18 165/92 H 99 08/09/18 07:35 08/09/18 07:35 08/09/18 07:35 08/09/18 07:35 08/09/18 07:35 Laboratory Results 08/08/18 04:26 08/08/18 04:26 08/08/18 08/09/18 08/10/18 05:59 05:59 05:59 Intake Total 1999 3500 Output Total 1875 1660 275 Balance 125 1840 -275 Alert, NAD RRR Abd soft, NTTP Inc C/D/I ICD10 Worksheet Patient Problems: Problems Problem Status Onset Diverticulitis Acute - ICD10 Problem Qualifiers (1) Diverticulitis
--- NOTE | 2018-08-21 16:44 | GDS ---
[f rep st] DISCHARGE SUMMARY PREOPERATIVE DIAGNOSIS: Diverticulitis. NAME OF PROCEDURE: Robotic low anterior resection. INDICATIONS FOR ADMISSION: This is a 63-year-old male with a history of diverticulitis. Please see the history and physical for full details of admission. HOSPITAL COURSE: On 08/06/2018, the patient underwent a robotic low anterior resection. There were no complications from the operation. The patient was admitted to the [facility] surgical unit. There he di d well, was gradually advanced on his diet. By 08/09/2018, he was ambulating, voiding, and toleratin g p.o. His pain was controlled on p.o. pain medications. He was discharged home after being given e xtensive instructions regarding his diet and exercise advancement. He will follow up in 2 weeks. /[id number]/MODL
== END 2018-08-09 13:00 | disposition home or self-care (01) | DRG 231 ==
LOC: F3E 08-06 05:59 → F1N 08-06 12:15
PROVIDERS: ADMIT Surgery; ATTEND Surgery
DX: K57.32 Diverticulitis of large intestine without perforation or abscess without bleeding (principal); G47.33 Obstructive sleep apnea (adult) (pediatric); Z23 Encounter for immunization; Z87.891 Personal history of nicotine dependence
CPT/HCPCS: G0008; J0171; J0694; J1100; J1170; J1885; J2001; J2250; J2405; J2704; J2795; J3010